=== PATIENT | female | born 1935 | race Two or more races ===

== ENCOUNTER 2022-06-29 18:31 | Emergency (ER) | payer OTHER ==
[~2022-06-29] VITALS: Ht 157.5 cm; Wt 85.7 kg
[2022-06-29] MEDS ORDERED: ARICEPT10 MG (19:54)
[2022-06-29] MEDS ORDERED: CHILDREN'S ASPI81 MG (19:54)
[2022-06-29] MEDS ORDERED: ISOSORBIDE DINI30 MG (19:54)
[2022-06-29] MEDS ORDERED: LEVOTHYROXINE75 MC1 (19:54)
[2022-06-29] MEDS ORDERED: SIMVASTATIN5 MG (19:55)
[2022-06-29] MEDS ORDERED: LANTUS SOL100 UNIT/1 (19:55)
[2022-06-29] MEDS ORDERED: HUMALOG100 UNIT/1 (19:55)
[2022-06-29] MEDS ORDERED: OMEPRAZOLE MAGN20 MG (19:55)
[2022-06-29] MEDS ORDERED: COZAAR50 MG (19:55)
== END 2022-06-30 03:14 | disposition home or self-care (01) ==
LOC: ER 18:31
DX: M54.50 Low back pain, unspecified (principal); G30.9 Alzheimer's disease, unspecified; F02.80 Dementia in other diseases classified elsewhere, unspecified severity, without behavioral disturbance, psychotic disturbance, mood disturbance, and anxiety; Z88.0 Allergy status to penicillin; Z91.041 Radiographic dye allergy status

== ENCOUNTER 2024-08-11 18:29 | Emergency (ER) | payer OTHER ==
[~2024-08-11] VITALS: Ht 157.5 cm; Wt 58.5 kg
[~2024-08-11 18:29] MED LIST: ARICEPT10 MG; CHILDREN'S ASPI81 MG; COZAAR50 MG; HUMALOG100 UNIT/1; ISOSORBIDE DINI30 MG; LANTUS SOL100 UNIT/1; LEVOTHYROXINE75 MC1; OMEPRAZOLE MAGN20 MG; SIMVASTATIN5 MG
[2024-08-11] MEDS ORDERED: SIMVASTATIN20 MG (18:33)
[2024-08-11] MEDS ORDERED: 0.9 % SODIUM CHLORIDE 1,000 ML IV ONE (19:30)
[2024-08-11 19:57] LABS: HEMATOCRIT 41.5 % (36.0-45.00); HEMOGLOBIN 13.7 g/dL (12.0-15.00); MEAN CELL VOLUME 93.2 fL (80.00-100.00); MEAN CORPUSCULAR HEMOGLOBIN 30.8 pg (27.00-32.0); PLATELET COUNT 239 K/uL (150-450); RED BLOOD COUNT 4.46 M/uL (4.00-6.00); RED CELL DISTRIBUTION WIDTH 13.5 % (11.5-14.5)
[2024-08-11 20:15] LABS: INR 0.99; PARTIAL THROMBOPLASTIN TIME 21.4 SECONDS (22.0-34.0); PROTHROMBIN TIME 10.8 SECONDS (9.0-11.5)
[2024-08-11 20:21] LABS: ALBUMIN 3.5 gm/dL (3.4-5.0); BILIRUBIN TOTAL 0.39 mg/dL (0.3-1.2); CALCIUM 10.4 mg/dL (8.5-10.1); CREATININE SERUM 1.34 mg/dL (0.55-1.02); GFR 37.5; GLOBULINA 3.5 G/DL (2.4-3.5); POTASSIUM 3.94 mEq/L (3.5-5.1)
[2024-08-11 20:34] LABS: PH,URINE 5.5 (5.0-8.0); URINE APPEARANCE Clear; URINE BILIRRUBIN Negative (NEGATIVE); URINE BLOOD Negative; URINE COLOR Yellow; URINE KETONE Negative (NEGATIVE); URINE LEUKOCYTE Negative; URINE NITRATE Negative; URINE PROTEIN Negative (NEGATIVE)
[2024-08-11 20:35] LABS: URINE BACTERIA 20.8 uL (0.0-1933); URINE EPITHELIAL CELLS 9.9 uL (0.0-38.8); URINE RBC 3.3 uL (0.0-20.8); URINE WBC 45.4 uL (0.0-23.2)
[2024-08-11 20:51] LABS: URINE CAST 1.17 uL (0.0-1.40); URINE GLUCOSE >=1000 MG/DL (NEGATIVE)
[2024-08-11] MEDS ORDERED: AZITHROMYCIN500 MG PO (22:49)
[2024-08-11] MEDS ORDERED: PROTONIX20 MG PO (22:49)
== END 2024-08-11 23:00 | disposition home or self-care (01) ==
LOC: ER 18:29
PROVIDERS: General Practice
DX: R73.9 Hyperglycemia, unspecified (principal); I10 Essential (primary) hypertension; E03.8 Other specified hypothyroidism; Z79.4 Long term (current) use of insulin; Z88.6 Allergy status to analgesic agent; Z91.041 Radiographic dye allergy status
CPT/HCPCS: 36415; 51702; 70450; 71045; 93005; 96365; 96366; 99284; J7030